=== PATIENT | male | born 1990 | race Caucasian/White ===

== ENCOUNTER 2021-08-19 17:09 | Emergency (ER) | payer OTHER ==
[~2021-08-19] VITALS: Ht 180.3 cm; Wt 95.2 kg
[~2021-08-19 17:09] MED LIST: NORCO 5-325 TA1 EACH PO
[2021-08-19] MEDS ORDERED: AMOXICILLIN500 MG PO (18:11)
== END 2021-08-19 20:16 | disposition home or self-care (01) ==
LOC: ED 17:09
DX: S63.601A Unspecified sprain of right thumb, initial encounter (principal); S60.221A Contusion of right hand, initial encounter; F17.200 Nicotine dependence, unspecified, uncomplicated; Z79.899 Other long term (current) drug therapy; W01.0XXA Fall on same level from slipping, tripping and stumbling without subsequent striking against object, initial encounter
CPT/HCPCS: 73130; 96372; 99283-25; J1885

== ENCOUNTER 2022-10-05 13:48 | Emergency (ER) | payer OTHER ==
[~2022-10-05] VITALS: Ht 180.3 cm; Wt 88.0 kg
[~2022-10-05 13:48] MED LIST changes: +AMOXICILLIN500 MG PO
[2022-10-05] MEDS ORDERED: HYDROCODON-ACE1 EA10 PO (16:13)
[2022-10-05 16:36] VITALS: BP 128/82
== END 2022-10-05 16:30 | disposition home or self-care (01) ==
LOC: ED 13:48
DX: S62.326A Displaced fracture of shaft of fifth metacarpal bone, right hand, initial encounter for closed fracture (principal); W22.8XXA Striking against or struck by other objects, initial encounter; F17.200 Nicotine dependence, unspecified, uncomplicated
CPT/HCPCS: 26600; 73130; 99283-25

== ENCOUNTER 2023-02-13 16:33 | Emergency (ER) | payer OTHER ==
[~2023-02-13] VITALS: Ht 180.3 cm; Wt 88.0 kg
[~2023-02-13 16:33] MED LIST changes: +HYDROCODON-ACE1 EA10 PO
[2023-02-13] MEDS ORDERED: HYDROCODON-ACE1 EA10 PO (16:51)
[2023-02-13] MEDS ORDERED: NAPROSYN500 MG PO (16:51)
[2023-02-13 17:05] VITALS: BP 138/82
== END 2023-02-13 17:06 | disposition home or self-care (01) ==
LOC: ED 16:33
DX: S30.22XA Contusion of scrotum and testes, initial encounter (principal); F17.200 Nicotine dependence, unspecified, uncomplicated; W50.0XXA Accidental hit or strike by another person, initial encounter

== ENCOUNTER 2023-11-19 21:36 | Emergency (ER) | payer OTHER ==
[~2023-11-19] VITALS: Ht 180.3 cm; Wt 96.0 kg
[~2023-11-19 21:36] MED LIST changes: +NAPROSYN500 MG PO
[2023-11-19] MEDS ORDERED: DIPHTH,PERTUSS(ACELL),TET VAC 0.5 ML SYRINGE IM ONE (22:15)
[2023-11-19] MEDS ORDERED: AMOXICILLIN/CLAVULANATE K 875 MG HOME.PACK PO ONE (23:00)
[2023-11-19] MEDS ORDERED: AMOX TR-K CLV1 EAC1 PO (23:05)
[2023-11-19 23:46] VITALS: BP 122/73
== END 2023-11-19 23:48 | disposition home or self-care (01) ==
LOC: ED 21:36
DX: S61.011A Laceration without foreign body of right thumb without damage to nail, initial encounter (principal); S61.212A Laceration without foreign body of right middle finger without damage to nail, initial encounter; W27.4XXA Contact with kitchen utensil, initial encounter; F17.200 Nicotine dependence, unspecified, uncomplicated; Z79.899 Other long term (current) drug therapy; Z23 Encounter for immunization
CPT/HCPCS: 73130; 90715